=== PATIENT | male | born 2000 | race Caucasian/White ===

== ENCOUNTER 2022-12-21 20:07 | Emergency (ER) | payer BC ==
[2022-12-21] MEDS ORDERED: Benzocaine 20% Spray 60 ML CAN ONE (21:12)
[2022-12-21] MEDS ORDERED: Dexamethasone 10 MG/ML VIAL ONE (21:32)
== END 2022-12-21 21:54 | disposition home or self-care (01) ==
LOC: ERS 20:07
DX: T78.1XXA Other adverse food reactions, not elsewhere classified, initial encounter (principal); R06.03 Acute respiratory distress
CPT/HCPCS: 99283; J1100